=== PATIENT | female | born 1995 | race Caucasian/White ===

== ENCOUNTER 2020-12-08 11:24 | Emergency (ER) | payer SELFPAY ==
[2020-12-08 11:35] VITALS: BP 118/72; PULSE 96; RESP 16; TEMP 36.7; O2SAT 99
[2020-12-08] MEDS: ACETAMINOPHEN 325 MG TABLET 650 MG PO (12:20)
[2020-12-08 12:26] LABS: Add Urine Microscopic? YES; Appearance Urine Clear (Clear); Bilirubin Urine Negative (Negative); Blood Urine Negative (Negative); Color Urine Light Yellow (Yellow); Glucose Urine UA Negative (Negative); Ketones Urine Negative (Negative); Leukocyte Esterase Ur Trace (Negative); Nitrate Urine Negative (Negative); Protein Urine Negative (Negative); Specific Grav Ur 1.025 (1.010-1.020); Urobilinogen Urine 0.2 mg/dL (0.2-1.0); pH Urine 5.5 (5.0-8.0)
[2020-12-08 12:32] LABS: Pregnancy On Board Control Positive; Urine Pregnancy Test Negative
[2020-12-08 12:34] LABS: Bacteria Urine 2+ /hpf; RBC Urine 0-2 /hpf (0-2); Squamous Epithelial Cell Urine Many /hpf (Few); WBC Urine 0-3 /hpf (0-3)
--- NOTE | 2020-12-08 13:04 | ED.FEMALEGU ---
HPI - Female Genitourinary General Chief complaint: Urogenital-Female Stated complaint: possible UTI, kidney pain Time Seen by Provider: 12/08/20 11:27 Source: patient and RN notes reviewed Mode of arrival: ambulatory Limitations: no limitations History of Present Illness MD elicited complaint: dysuria and other (mild suprapubic pain.) Onset (ago): day(s) (2) Location of symptoms: suprapubic Severity: mild Related Data Home Medications Medication Instructions Recorded Confirmed No Home Medications 12/08/20 12/08/20 Allergies Allergy/AdvReac Type Severity Reaction Status Date / Time No Known Allergies Allergy Verified 12/08/20 11:55 Review of Systems Review of Systems: All systems reviewed & are unremarkable except as noted in HPI and below Constitutional: Constitutional: Reports as per HPI and Reports no additional constitutional complaints Eyes: Eyes: Reports as per HPI and Reports no additional eye complaints ENT: Reports system reviewed and no additional complaints, except as documented and Reports as per HPI Cardiovascular: Cardiovascular: Reports as per HPI and Reports no additional cardiovascular complaints Respiratory: Respiratory: Reports as per HPI and Reports no additional respiratory complaints Gastrointestinal: Gastrointestinal: Reports as per HPI and Reports no additional gastrointestinal complaints Genitourinary: Genitourinary: Reports no additional female genitourinary complaints and Reports as per HPI Musculoskeletal: Musculoskeletal: Reports no additional musculoskeletal complaints and Reports as per HPI Integumentary/Breasts: Skin/Breast: Reports system reviewed and no additional complaints, except as docu and Reports as per HPI Neurologic: Reports system reviewed and no additional complaints, except as documented and Reports as per HPI Psychiatric: Psychiatric: Reports no additional psychiatric complaints and Reports as per HPI Endocrine: Endocrine: Reports no additional endocrine complaints and Reports as per HPI Hematologic/Lymphatic: Hematologic/Lymphatic: Reports no additional hematologic/lymphatic complaints and Reports as per HPI Allergic/Immunologic: Allergic/Immunologic: Reports no additional allergic/immunologic complaints and Reports as per HPI PMFSH Past Medical History Medical History (Updated 12/08/20 @ 14:02 by Domo Coello MD) Medical history non-contributory UTI (urinary tract infection) Exam Const: General: no acute distress and alert Nutritional Appearance: well nourished Orientation/consciousness: patient oriented x3 Limitations: no limitations HENMT: Head: normal to inspection Ears: external ears normal and TM's normal bilaterally General nose exam: Normal external nose present and Normal nares present Mouth: Yes lip normal and Yes moist mucous membranes Teeth and gingiva: dentition normal Eyes: General: appearance normal, both eyes and all related structures Conjunctivae: conjunctivae normal Pupils: Equal, round and reactive pupils present EOM: EOMs intact bilaterally Neck: Neck: normal visual inspection and no lymphadenopathy Chest: Chest palpation & inspection: normal inspection of the chest Resp: Effort & Inspection: normal respiratory effort Auscultation: clear to auscultation bilaterally Cardio: Rate: regular rate Rhythm: regular rhythm GI: GI Palp: Yes Soft to palpation Percussion: Yes normal to percussion Auscultation: normal bowel sounds : General: Yes no CVA tenderness Back/Spine/Pelvis: Back: no CVA tenderness Skin: General skin exam: normal color Rashes: no rashes Neuro: General: patient oriented x3, moves all extremities, no focal motor deficits and CN's II-XI intact bilaterally Cranial nerves: Yes Nystagmus not present Extrem: General: normal to inspection and no pedal edema Psych: Mental Status: mental status grossly normal Affect: normal affect Attitude: cooperative Course Course Emergency Course:
[2020-12-08] MEDS: cefTRIAXone 1 GM VIAL IM (13:30)
[2020-12-08 13:34] VITALS: RESP 16
== END 2020-12-08 13:35 | disposition home or self-care (01) ==
PROVIDERS: Emergency Provider Emergency Medicine
DX: N39.0 Urinary tract infection, site not specified (principal)
CPT/HCPCS: 81001; 81025; 96372; 99283; A9270; J0696

== ENCOUNTER 2021-01-09 16:42 | Emergency (ER) | payer MEDICAID, SELFPAY ==
--- NOTE | ~2021-01-09 | XR_ITS ---
XR hand RT 2V DATE: 01/09/2021 18:25 INDICATION: Hand injury TECHNIQUE: AP and lateral views COMPARISON: None FINDINGS: There is a linear oblique intra-articular fracture of the head of the fifth metacarpal bone with approximately 1 mm lateral displacement No other fracture or dislocation is detected. IMPRESSION: Fracture of the head of the fifth metacarpal bone Reviewed, dictated and finalized at location A.
--- NOTE | 2021-01-09 17:27 | ED_ITS ---
HPI - Extremity Injury (Upper) General Chief Complaint: Extremity Injury, Upper Stated Complaint: broken hand Source: patient Mode of arrival: ambulatory Limitations: no limitations History of Present Illness HPI narrative: this is a 25-year-old female who presents with a swollen tender right hand after she punched a wall, currently having minimal pain with rest the area is swollen with some bruising has good range of motion in her wrist with a strong brisk radial pulse on the right. complaint: injury to: right Onset (ago): hour(s) Other Extremity Injury: Right: hand ( swelling and bruising) Related Data Home Medications Medication Instructions Recorded Confirmed No Home Medications 01/09/21 01/09/21 Allergies Allergy/AdvReac Type Severity Reaction Status Date / Time No Known Allergies Allergy Verified 01/09/21 18:00 Review of Systems Review of Systems: All systems reviewed & are unremarkable except as noted in HPI and below PMFSH Past Medical History Medical History Medical history non-contributory UTI (urinary tract infection) Exam 2 Const: General: cooperative, healthy appearing and comfortable HENMT: Head: normal to inspection Ears: hearing grossly normal bilaterally General nose exam: Normal external nose present Mouth: Yes Normal oral and palatal mucosa present Throat: posterior oropharynx normal Eyes: General: appearance normal, both eyes and all related structures Neck: Neck: normal visual inspection, full ROM, no lymphadenopathy and no meningeal signs Chest: Chest palpation & inspection: normal inspection of the chest Resp: Effort & Inspection: normal respiratory effort Cardio: Jugular venous distension: no JVD Palpation: normal PMI Rate: regular rate Rhythm: regular rhythm GI: Inspection: normal to inspection Percussion: Yes normal to percussion Neuro: General: oriented to person, oriented to place, oriented to time, patient oriented x3 and gait normal Extrem: Hand/finger images: 1. Swelling with point tenderness with decreased range of motion secondary to pain and inflammation. Psych: Appearance: grossly normal and well kempt Course Course Emergency Course: Declined pain medicine, will use ice, and x-ray reviewed with patient. Critical Care Time Critical Care Time Critical Care Time: No Discharge Plan Discharge Clinical Impression: Fracture of hand Qualifiers: Encounter type: initial encounter Fracture type: closed Laterality: right Qualified Code(s): S62.91XA - Unspecified fracture of right wrist and hand, initial encounter for closed fracture Patient Disposition: Home, Self-Care Condition: Stable Instructions: Antibiotic Form Additional Instructions: Advised to take Tylenol or Motrin for pain and follow-up with primary care physician within 1 week for referral to Orthopedics. Prescriptions: No Action No Home Medications RF: 0 Follow-up/Referrals: UNKNOWN,DOCTOR [Primary Care Provider] - Time of Disposition: 18:41
[2021-01-09 17:46] VITALS: BP 133/76; PULSE 88; RESP 20; TEMP 36.5; O2SAT 98
[2021-01-09 19:05] VITALS: BP 124/59; PULSE 94; RESP 20; TEMP 36.7; O2SAT 98
== END 2021-01-09 19:15 | disposition home or self-care (01) ==
PROVIDERS: Emergency Provider Emergency Medicine
DX: S62.91XA Unspecified fracture of right hand, initial encounter for closed fracture (principal); W22.01XA Walked into wall, initial encounter
CPT/HCPCS: 29125; 73120; 99283; 99284

== ENCOUNTER 2021-02-05 09:37 | Outpatient (CLI) | payer MEDICAID, SELFPAY ==
[2021-02-05 10:18] LABS: Basophils Absolute Auto 0.05 K/mm3 (0.00-0.10); Basophils Percent Auto 0.5 % (0.0-1.0); Eosinophils Absolute Auto 0.18 K/mm3 (0.02-0.50); Eosinophils Percent Auto 1.8 % (1.0-6.0); Hematocrit 36.2 % (35.0-49.0); Hemoglobin 12.2 g/dL (12.0-15.0); Immature Granulocyte Absolute 0.04 K/mm3 (0.00-0.00); Immature Granulocyte Percent A 0.4 % (0.0-0.0); Lymphocytes Absolute Auto 3.23 K/mm3 (1.10-4.50); Lymphocytes Percent Auto 32.7 % (18.0-42.0); Mean Corpuscular HGB Conc 33.7 g/dL (32.0-36.0); Mean Corpuscular Hemoglobin 30.6 pg (27.0-31.0); Mean Corpuscular Volume 90.7 fL (78.0-102.0); Mean Platelet Volume 9.6 fl (9.2-11.8); Monocytes Absolute Auto 0.66 K/mm3 (0.10-0.90); Monocytes Percent Auto 6.7 % (2.0-11.0); Neutrophils Absolute Auto 5.7 K/mm3 (1.7-7.2); Neutrophils Percent Auto 57.9 % (50.0-70.0); Platelet Count Result 323 K/mm3 (150-420); Red Blood Count 3.99 M/mm3 (4.20-5.40); Red Cell Distribution Width 12.4 % (11.6-14.4); White Blood Count 9.9 K/mm3 (4.8-10.8)
--- NOTE | 2021-02-05 10:30 | PC.NURSE ---
PICC line in right upper bicep area. PICC line dressing change performed using sterile technique. Patient tolerated well. No s/s of infection noted. Light purple green bruising noted around the insertion site. PICC line flushed with 10cc NS. Patient complained of minimal pain with NS flush. PICC line flushes without difficulty but unable to get a blood return. Patient states It only hurts when I flush it. When I give the antibiotics, it is fine. Discussed s/s of infection and when to call her PCP. Sent patient to lab for her labwork. Patient safely ambulated from OP treatment room to the lab area. --Sun Howe RN
[2021-02-05 11:18] LABS: Alanine Aminotransferase 38 U/L (14-59); Albumin Level 3.4 g/dL (3.4-5.0); Alkaline Phosphatase 61 U/L (46-116); Anion Gap 11 mmol/L (8-16); Aspartate Amino Transferase 17 U/L (15-37); Bilirubin,Total 0.3 mg/dL (0.00-1.00); Blood Urea Nitrogen 7 mg/dL (7-18); Calcium 8.9 mg/dL (8.5-10.1); Carbon Dioxide 25 mmol/L (21-32); Chloride 106 mmol/L (98-108); Estimated Glomerular Filt Rate > 60; Glucose 84 mg/dL (70-99); Osmolality Calculated 291 mOsm/kg (285-295); Potassium 3.9 mmol/L (3.5-5.1); Sodium 142 mmol/L (136-145); Total Protein 6.5 g/dL (6.4-8.2)
[2021-02-05 11:21] LABS: Erythrocyte Sedimentation Rate 18 mm/hr (0-15)
[2021-02-05 11:23] LABS: CRP < 0.2 mg/dL (0.0-0.9)
== END 2021-02-05 09:38 | disposition home or self-care (01) ==
LOC: CHSTREATRM 09:40
PROVIDERS: Visit Provider Internal Medicine Infectious Disease
DX: M65.9 Synovitis and tenosynovitis, unspecified (principal); W55.01XD Bitten by cat, subsequent encounter
CPT/HCPCS: 36415; 80053; 85025; 85652; 86140; 99211; G0463

== ENCOUNTER 2021-02-13 14:00 | Outpatient (CLI) | payer MEDICAID, SELFPAY ==
--- NOTE | 2021-02-13 14:23 | PC.NURSE ---
Here for removal of PICC line, pick line removed, 15cm length, pressure dressing applied, tolerated well, ambulatory on discharge
== END 2021-02-13 14:01 | disposition home or self-care (01) ==
LOC: CHSTREATRM 14:04
PROVIDERS: PCP Family Medicine; Visit Provider Internal Medicine Infectious Disease
DX: S61.259D Open bite of unspecified finger without damage to nail, subsequent encounter (principal)
CPT/HCPCS: 99211; G0463

== ENCOUNTER 2021-04-20 10:46 | Emergency (ER) | payer BC, SELFPAY ==
--- NOTE | ~2021-04-20 | CT_ITS ---
EXAMINATION: CT abdomen pelvis wo con EXAM DATE: 04/20/2021 12:35 INDICATION: Left flank pain x3days, gross hematuria 4 days ago. TECHNIQUE: Spiral CT of the abdomen and pelvis was performed without contrast. Axial, coronal and sag ittal images were reviewed. The dose-length product (DLP) for this examination was 515.23 mGy-cm. T he exposure was tailored according to patient size (auto mA exposure control), and iterative reconstr uction (ASIR) was used as additional dose reduction technique. There is no prior study for compariso n. FINDINGS: There is mild fat stranding surrounding the left renal pelvis, possible upper urinary tract infection. Correlate with urinalysis. There is no nephrolithiasis or hydronephrosis. Several left ovarian cystic regions up to 2.5 cm probably physiologic cysts. The bladder is unremarkable. The li walter, spleen, adrenal glands and pancreas are unremarkable. Gallbladder not identified, patient likel y has had cholecystectomy. There is no retroperitoneal or pelvic lymphadenopathy. Small umbilical fat-containing hernia. The appendix is not positively visualized. There is no pericecal inflammatory change to suggest appe ndicitis. The stomach and small bowel are unremarkable. There is expected amount of colonic stool. No free intraperitoneal gas. The heart is normal in size. There are no pericardial or pleural e ffusions. The lung bases are unremarkable. There are no osteoblastic or osteolytic lesions identifi ed. IMPRESSION: Possible left upper urinary tract infection. Correlate with urinalysis. Reviewed, dictated and finalized at location A. WORKER IMPRESSION: Possible left upper urinary tract infection. Correlate with urinaly sis.
[2021-04-20 10:50] VITALS: BP 118/77; PULSE 103; RESP 18; TEMP 36.3; O2SAT 97
[2021-04-20 11:44] LABS: Basophils Absolute Auto 0.05 K/mm3 (0.00-0.10); Basophils Percent Auto 0.5 % (0.0-1.0); Eosinophils Absolute Auto 0.11 K/mm3 (0.02-0.50); Eosinophils Percent Auto 1.1 % (1.0-6.0); Hematocrit 40.3 % (35.0-49.0); Hemoglobin 12.9 g/dL (12.0-15.0); Immature Granulocyte Absolute 0.03 K/mm3 (0.00-0.00); Immature Granulocyte Percent A 0.3 % (0.0-0.0); Lymphocytes Absolute Auto 2.65 K/mm3 (1.10-4.50); Lymphocytes Percent Auto 27.6 % (18.0-42.0); Mean Corpuscular Hemoglobin 29.6 pg (27.0-31.0); Mean Corpuscular Volume 92.4 fL (78.0-102.0); Mean Platelet Volume 9.4 fl (9.2-11.8); Monocytes Absolute Auto 0.83 K/mm3 (0.10-0.90); Monocytes Percent Auto 8.6 % (2.0-11.0); Neutrophils Absolute Auto 5.9 K/mm3 (1.7-7.2); Neutrophils Percent Auto 61.9 % (50.0-70.0); Platelet Count Result 300 K/mm3 (150-420); Red Blood Count 4.36 M/mm3 (4.20-5.40); Red Cell Distribution Width 12.2 % (11.6-14.4); White Blood Count 9.6 K/mm3 (4.8-10.8)
[2021-04-20 11:45] LABS: Add Urine Microscopic? YES; Appearance Urine Sl Cloudy (Clear); Bilirubin Urine Negative (Negative); Blood Urine 1+ (Negative); Color Urine Light Yellow (Yellow); Glucose Urine UA Negative (Negative); Ketones Urine Negative (Negative); Leukocyte Esterase Ur Negative (Negative); Nitrate Urine Negative (Negative); Protein Urine 2+ (Negative); Specific Grav Ur 1.025 (1.010-1.020); Urobilinogen Urine 0.2 mg/dL (0.2-1.0); pH Urine 6.5 (5.0-8.0)
[2021-04-20] MEDS: KETOROLAC (*BKC) 60 MG/2 ML VIAL IM (11:45)
[2021-04-20 11:51] LABS: Bacteria Urine Trace /hpf; Squamous Epithelial Cell Urine Moderate /hpf (Few); WBC Urine 0-3 /hpf (0-3)
[2021-04-20 12:00] LABS: Alanine Aminotransferase 26 U/L (14-59); Albumin Level 3.3 g/dL (3.4-5.0); Alkaline Phosphatase 84 U/L (46-116); Anion Gap 8 mmol/L (8-16); Aspartate Amino Transferase 11 U/L (15-37); Bilirubin,Total 0.2 mg/dL (0.00-1.00); Blood Urea Nitrogen 10 mg/dL (7-18); Calcium 8.7 mg/dL (8.5-10.1); Carbon Dioxide 29 mmol/L (21-32); Chloride 106 mmol/L (98-108); Estimated CRCL calculation 92 ml/min; Estimated Glomerular Filt Rate > 60; Glucose 82 mg/dL (70-99); Osmolality Calculated 294 mOsm/kg (285-295); Potassium 3.8 mmol/L (3.5-5.1); Sodium 143 mmol/L (136-145); Total Protein 7.1 g/dL (6.4-8.2)
[2021-04-20 12:11] LABS: SPREG INTERNAL CONTROL Positive; Serum Qual hCG Negative
--- NOTE | 2021-04-20 13:00 | ED.ABDPAIN ---
HPI - Abdominal Pain General Chief Complaint: Urogenital-Female Stated Complaint: pain in left side for 5 days Time Seen by Provider: 04/20/21 10:52 Source: patient and RN notes reviewed Mode of arrival: ambulatory Limitations: no limitations History of Present Illness MD elicited complaint: abdominal pain Pertinent past history: past UTI Onset (ago): day(s) (2) Pain Consistency: constant Location: LLQ and L flank Severity: moderate Pain scale (0-10): 7 Quality: cramping, aching and dull Radiation: none Migration to: no migration Exacerbating factors: nothing Relieving factors: nothing Associated symptoms: nausea Related Data Allergies Allergy/AdvReac Type Severity Reaction Status Date / Time No Known Allergies Allergy Verified 01/09/21 18:00 Review of Systems Review of Systems: All systems reviewed & are unremarkable except as noted in HPI and below PMFSH Past Medical History Medical History Medical history non-contributory UTI (urinary tract infection) Exam Const: General: no acute distress and alert Nutritional Appearance: well nourished Orientation/consciousness: patient oriented x3 HENMT: Head: normal to inspection Ears: external ears normal and TM's normal bilaterally Mouth: Yes lip normal and Yes moist mucous membranes Teeth and gingiva: dentition normal Eyes: Conjunctivae: conjunctivae normal Pupils: Equal, round and reactive pupils present EOM: EOMs intact bilaterally Neck: Neck: normal visual inspection and no lymphadenopathy Chest: Chest palpation & inspection: normal inspection of the chest Resp: Effort & Inspection: normal respiratory effort Auscultation: clear to auscultation bilaterally Cardio: Rate: regular rate Rhythm: regular rhythm GI: GI Palp: Yes Soft to palpation and Yes Tenderness to palpation present (GI) (minimally tender LLQ. no CVA tenderness.) : General: Yes bladder normal to palpation (minimal suprapubic tenderness.) and Yes no CVA tenderness Back/Spine/Pelvis: Back: no CVA tenderness Skin: General skin exam: normal color Rashes: no rashes Neuro: General: patient oriented x3, moves all extremities, no meningeal signs, no focal motor deficits and CN's II-XI intact bilaterally Extrem: General: no pedal edema Psych: Appearance: grossly normal Mental Status: mental status grossly normal Thought content: Yes Normal thought content present Course Course Emergency Course: Less abdominal pain in a stable patient. Reevaluation(s) Date: 04/20/21 Time: 11:50 Vital Signs Vital signs: Vital Signs Temperature 36.3 C L 04/20/21 10:50 Pulse Rate 103 H 04/20/21 10:50 Respiratory Rate 18 04/20/21 10:50 Blood Pressure 118/77 04/20/21 10:50 Pulse Oximetry 97 04/20/21 10:50 Temperature 37.2 C 04/20/21 13:14 Pulse Rate 87 04/20/21 13:14 Respiratory Rate 18 04/20/21 13:14 Blood Pressure 103/69 04/20/21 13:14 Pulse Oximetry 98 04/20/21 13:14 MDM - Abdominal Pain Differential Diagnosis Differential diagnosis: Likely abdominal pain, acute appendicitis, calculus of kidney and endometriosis; Unlikely pancreatitis Medical Records Attestation: I reviewed the patient's medical records. Lab Data Attestation: I reviewed the patient's lab results. Result diagrams: 04/20/21 11:38 04/20/21 11:38 Labs: Lab Results 04/20/21 04/20/21 04/20/21 Range/Units 11:38 11:38 11:38 WBC 9.6 (4.8-10.8) K/mm3 RBC 4.36 (4.20-5.40) M/mm3 Hgb 12.9 (12.0-15.0) g/dL Hct 40.3 (35.0-49.0) % MCV 92.4 (78.0-102.0) fL MCH 29.6 (27.0-31.0) pg MCHC 32.0 (32.0-36.0) g/dL RDW 12.2 (11.6-14.4) % Plt Count 300 (150-420) K/mm3 MPV 9.4 (9.2-11.8) fl Immature Gran % (Auto) 0.3 H (0.0-0.0) % Neut % (Auto) 61.9 (50.0-70.0) % Lymph % (Auto) 27.6 (18.0-42.0) % [place] % (Auto) 8.6 (2.0-11.0) % Eos % (Auto) 1.1 (1.0-
[2021-04-20 13:14] VITALS: BP 103/69; PULSE 87; RESP 18; TEMP 37.2; O2SAT 98
== END 2021-04-20 13:17 | disposition home or self-care (01) ==
PROVIDERS: Emergency Provider Emergency Medicine; PCP Family Medicine
DX: N39.0 Urinary tract infection, site not specified (principal); N83.202 Unspecified ovarian cyst, left side
CPT/HCPCS: 36415; 74176; 80053; 81001; 84703; 85025; 96372; 99283; 99284; J1885

== ENCOUNTER 2021-04-21 15:00 | Outpatient (CLI) | payer BC, SELFPAY ==
[2021-04-21 16:22] LABS: SARS-CoV-2 Ag Negative (Negative)
== END 2021-04-21 15:01 | disposition home or self-care (01) ==
LOC: CHSLAB 15:04
PROVIDERS: PCP Family Medicine; Visit Provider Nurse Practitioner Psychiatric/Mental Health
DX: R09.89 Other specified symptoms and signs involving the circulatory and respiratory systems (principal); Z20.822 Contact with and (suspected) exposure to COVID-19
CPT/HCPCS: 87426; C9803

== ENCOUNTER 2021-04-26 14:36 | Outpatient (CLI) | payer BC, SELFPAY ==
[2021-04-26 19:27] LABS: SARS-CoV-2 Ag Negative (Negative)
== END 2021-04-26 14:37 | disposition home or self-care (01) ==
LOC: CHSLAB 14:39
PROVIDERS: PCP Family Medicine; Visit Provider Family Medicine
DX: Z20.822 Contact with and (suspected) exposure to COVID-19 (principal)
CPT/HCPCS: 87426; C9803

== ENCOUNTER 2023-01-23 19:53 | Emergency (ER) | payer MEDICAID, SELFPAY ==
[2023-01-23 19:54] VITALS: BP 116/79; PULSE 116; RESP 18; TEMP 36.8; O2SAT 97
--- NOTE | 2023-01-23 19:56 | ED.ANIMALBIT ---
HPI - Animal Bite General Chief Complaint: Animal Bite Stated Complaint: Cat Bite Time Seen by Provider: 01/23/23 19:55 Source: patient and RN notes reviewed Mode of arrival: ambulatory Limitations: no limitations History of Present Illness HPI narrative: patient had a cat bite last evening. She went to [facility] emergency room. She was started on antibiotics, Augmentin, but has only had 2 doses. She was told that if it pain got worse or got more red that she should be seen again. She says that is hurting worse it seems more red to her. She had a cat bite before and had to be admitted to the hospital and get IV antibiotics through PICC line so she is very concerned this will happen again. MD complaint: animal bite Onset (ago): day(s) (1) Animal: cat Description of animal: household pet Mechanism: bite Location - Extremities: Left: ankle Pain description: sharp, burning and constant Context: playing with animal Associated symptoms: none Related Data Allergies Allergy/AdvReac Type Severity Reaction Status Date / Time No Known Allergies Allergy Verified 01/23/23 19:55 Review of Systems Review of Systems: All systems reviewed & are unremarkable except as noted in HPI and below Constitutional: Constitutional: Denies chills and Denies fever(s) PMFSH Past Medical History Medical History Medical history non-contributory UTI (urinary tract infection) Exam Const: General: healthy appearing, no acute distress and alert Nutritional Appearance: well nourished Orientation/consciousness: patient oriented x3 Limitations: no limitations HENMT: Head: normal to inspection Ears: external ears normal Face/Nose/Sinus: Normal external nose present Face and sinus: normal facial exam Mouth: Yes moist mucous membranes Eyes: Conjunctivae: conjunctivae normal Pupils: Equal, round and reactive pupils present EOM: EOMs intact bilaterally Neck: Neck: normal visual inspection Resp: Effort & Inspection: normal respiratory effort Auscultation: clear to auscultation bilaterally Cardio: Rate: regular rate Rhythm: regular rhythm GI: GI Palp: Yes Soft to palpation and No Tenderness to palpation present (GI) Auscultation: normal bowel sounds Back/Spine/Pelvis: Cervical Spine: cervical ROM normal Thoracic/Lumbar Spine: thoraco-lumbar ROM normal Skin: General skin exam: normal color Wounds: wounds noted ( Tender with increased warmth mild swelling) puncture wound left distal ankle size ( scabbed over puncture wound), without odor and with surrounding erythema; no drainage Neuro: General: patient oriented x3, moves all extremities, no focal motor deficits and CN's II-XI intact bilaterally Speech: normal speech Extrem: General: normal to inspection and no clubbing, cyanosis or edema Psych: Mental Status: mental status grossly normal Affect: normal affect Attitude: cooperative Course Vital Signs Vital signs: Vital Signs Temperature 36.8 C 01/23/23 19:54 Pulse Rate 116 H 01/23/23 19:54 Respiratory Rate 18 01/23/23 19:54 Blood Pressure 116/79 01/23/23 19:54 Pulse Oximetry 97 01/23/23 19:54 Oxygen Delivery Room Air 01/23/23 19:54 Temperature 36.8 C 01/23/23 19:54 Pulse Rate 116 H 01/23/23 19:54 Respiratory Rate 18 01/23/23 19:54 Blood Pressure 116/79 01/23/23 19:54 Pulse Oximetry 97 01/23/23 19:54 Oxygen Delivery Room Air 01/23/23 19:54 MDM - Animal Bite Differential Diagnosis Differential diagnosis: Likely cat bite and other ( cellulitis) Lab Data Attestation: I reviewed the patient's lab results. Discharge Plan Discharge Clinical Impression: Cat bite Qualifiers: Encounter type: initial encounter Qualified Code(s): W55.01XA - Bitten by cat, initial encounter Patient Disposition: Home, Self-Care Condition: Stable Instructions: Antibiotic Form, Animal Bite (ED) Additional Instructions: can use ice or heat
[2023-01-23 20:25] LABS: Mean Corpuscular HGB Conc 33.3 g/dL (32.0-36.0); Mean Corpuscular Volume 90.1 fL (78.0-102.0); Mean Platelet Volume 9.8 fl (9.2-11.8); Platelet Count Result 308 K/mm3 (150-420); Red Blood Count 4.66 M/mm3 (4.20-5.40); Red Cell Distribution Width 12.6 % (11.6-14.4); White Blood Count 11.3 K/mm3 (4.8-10.8)
[2023-01-23 20:31] LABS: CRP 5.3 mg/dL (0.0-0.9)
[2023-01-23] MEDS: AZITHROMYCIN 250 MG TABLET 500 MG PO (20:46)
[2023-01-23 20:48] VITALS: BP 118/93; PULSE 112; RESP 18; TEMP 36.8; O2SAT 98
== END 2023-01-23 20:50 | disposition home or self-care (01) ==
PROVIDERS: Emergency Provider Emergency Medicine
DX: S91.052A Open bite, left ankle, initial encounter (principal); W55.01XA Bitten by cat, initial encounter
CPT/HCPCS: 36415; 85027; 86140; 99283; A9270